=== PATIENT | female | born 1995 | race Caucasian/White ===

== ENCOUNTER 2016-09-22 22:21 | Emergency (ER) | payer OTHER ==
[~2016-09-22] VITALS: Ht 170.2 cm; Wt 70.0 kg
[2016-09-22 22:24] VITALS: TEMP 36.8; Ht 170.2 cm; Wt 70.0 kg
[2016-09-22] MEDS ORDERED: KETOROLAC TROMETHAMINE 60 MG/2 ML VIAL IM STA (22:40)
[2016-09-22] MEDS ORDERED: ONDANSETRON 4MG OD TAB PO ONE (22:45)
--- NOTE | 2016-09-22 22:46 | EMERGENCY ROOM VISIT NOTE ---
History Report prepared by Ender: Luis Antonio Barfield Under the Supervision of: Efrain AscencioO. First contact with patient: 22:28 Chief Complaint: OTHER COMPLAINT Stated Complaint: SEVERE CRAMPS History of Present Illness The patient is a 21 year old female who presents to the Emergency Room with complaints of abdominal cramping that began 1 hour ago. She rates her pain a 5/ 10 in severity. At this time, the patient's monthly period started. She states that this period was 1 week late, which never happens. This is the first time this has happened to her. She states she is not currently sexually active. Her period is light; however, it tends to get heavy during the middle of her cycle. Her periods usually last 6 to 7 days. She states that she first got her period when she was 17 years old. She normally gets pain with her periods each month, but it has never been this bad. She does not have any medical problems and is not on any medications. She has not changed her diet or any recent activity. Prior to arrival, she took Tylenol 1000 mg PO to help with the pain. She is currently nauseated. She denies any fevers, chills, vomiting, diarrhea, melena, hematochezia, or abnormal urinary symptoms. Source of History: patient Onset: 1 hour ago Position: abdomen Symptom Intensity: 5/10 Quality: cramping Timing: constant Associated Symptoms: + nausea, No fevers, No chills, No vomiting, No melena , No hematochezia, No diarrhea, No urinary symptoms Review of Systems See HPI for pertinent positives & negatives. A total of 10 systems reviewed and were otherwise negative. Past Medical & Surgical Medical Problems: (1) No Known Active Medical Problems Family History Patient reports no known family medical history. Social History Smoking Status: Current Every Day Smoker Drug Use: none Marital Status: single Occupation Status: student Current/Historical Medications No Active Prescriptions or Reported Meds Allergies Coded Allergies: No Known Allergies (Unverified , 09/22/16) Physical Exam Vital Signs Date Time Temp Pulse Resp B/P (MAP) Pulse Ox O2 Delivery O2 Flow Rate FiO2 09/22/16 23:39 88 18 99/45 99 09/22/16 22:24 36.8 77 18 111/64 100 Room Air Physical Exam GENERAL: alert, well appearing, well nourished, no distress, non-toxic EYE EXAM: normal conjunctiva, PERRL and EOM's grossly intact OROPHARYNX: no exudate, no erythema, lips, buccal mucosa, and tongue normal and mucous membranes are moist NECK: supple, no nuchal rigidity, no adenopathy, non-tender LUNGS: Clear to auscultation. Normal chest wall mechanics HEART: no murmurs, S1 normal and S2 normal ABDOMEN: abdomen soft, non-tender, normo-active bowel sounds, no masses, no rebound or guarding. BACK: Back is symmetrical on inspection and there is no deformity, no midline tenderness, no CVA tenderness. SKIN: no rashes and no bruising UPPER EXTREMITIES: upper extremities are grossly normal. LOWER EXTREMITIES: No pitting edema. NEURO EXAM: Normal sensorium, cranial nerves II-XII grossly intact, normal speech, no gross weakness of arms, no gross weakness of legs. Medical Decision & Procedures Medications Administered Medications (Trade) Dose Ordered Sig/Tray Route Start Time Stop Time Status Last Admin Dose Admin Ketorolac Tromethamine (Toradol Inj) 60 mg NOW STAT IM 09/22/16 22:40 09/22/16 22:42 DC 09/22/16 23:36 60 MG Ondansetron HCl (Zofran Odt) 4 mg ONE ONCE PO 09/22/16 22:45 09/22/16 22:46 DC 09/22/16 23:36 4 MG Ondansetron HCl (ZOFRAN ODT 4MG Home Pack) 1 homepack UD ONCE PO 09/22/16 23:30 09/22/16 23:31 DC 09/22/16 23:36 1 HOMEPACK ED Course 2228: The patient was evaluated in room B3B. A complete history and physical exam was performed. 2240: Ordered Toradol Inj 60 mg IM 2245: Ordered Ondansetron HCl 4 mg PO 2320: I reassessed the patient at this time. She feels better and would like to go home. 2330: Ordered Ondansetron HCl 1 homepack PO 2340: Upon reevaluation, the patient is feeling better. I discussed the findings and the treatment plan with the patient. She verbalizes agreement and understanding. She was discharged home. Medical Decision Patient well-appearing here despite complaints. Had no other GI or complaints here and only mild superpubic tenderness in the location of her cramps. Patient states this is normal, feels her. As normal other than being a couple days late. Patient with no other risky behavior for STD exposure and denies prior history of STDs. Patient denies risk of given lifestyle. Patient markedly improved with Toradol here, discussed symptoms to watch and return for, use of Tylenol and ibuprofen as an outpatient, adequate hydration, she verbalized understanding was agreeable with plan. Patient with no other [employer] history to suggest torsion, PID, TOA. Doubt UTI, colitis, diverticulitis, perforation, appendicitis, GI bleed, mesenteric ischemia. Patient with mild hypertension here, likely from patient lying on her side, patient young and healthy, doubt hypotension from sepsis or cardiac etiology, doubt vascular etiology. Medication Reconcilliation Current Medication List: was personally reviewed by me Blood Pressure Screening Patient's blood pressure: Normal blood pressure Impression Primary Impression: Dysmenorrhea Scribe Attestation The scribe's documentation has been prepared under my direction and personally reviewed by me in its entirety. I confirm that the note above accurately reflects all work, treatment, procedures, and medical decision making performed by me. Departure Information Dispostion Home / Self-Care Prescriptions No Active Prescriptions or Reported Meds Referrals No Doctor, Assigned (PCP) Forms HOME CARE DOCUMENTATION FORM, IMPORTANT VISIT INFORMATION, WORK / SCHOOL INSTRUCTIONS Patient Instructions My [facility] Additional Instructions Please drink plenty of water. You may use tylenol and ibuprofen as needed for pain. If you develop any worsening cramps or other abdominal pain, develop diarrhea, nausea/vomiting, notice a change in your urine, develop fevers/chills , or you have any other new or concerning symptoms, please return to the emergency room.
[2016-09-22] MEDS ORDERED: ONDANSETRON HOME PACK 4MG OD TAB PO ONE (23:30)
[2016-09-22 23:39] VITALS: BP 99/45; PULSE 88; O2SAT 99
== END 2016-09-22 23:40 | disposition home or self-care (01) ==
LOC: C.EDB 22:24
DX: N94.6 Dysmenorrhea, unspecified (principal); F17.200 Nicotine dependence, unspecified, uncomplicated